=== PATIENT | male | born 1980 | race Caucasian/White ===

== ENCOUNTER 2023-06-04 19:32 | Inpatient (IN) | payer OTHER ==
[2023-06-04] MEDS ORDERED: SODIUM CHLORIDE 0.9% 1,000 ML IV ONE (19:43)
[2023-06-04] MEDS ORDERED: LIDOCAINE 1% INJ 10MG/ML (5 ML VIAL-PF) SQ ONE (19:52)
[2023-06-04] MEDS ORDERED: MIDAZOLAM 2 MG/2 ML VIAL IVP ONE (19:53)
[2023-06-04] MEDS ORDERED: VERAPAMIL SYRINGE (5 MG/10 ML) INTRAARTER ONE (19:53)
[2023-06-04] MEDS ORDERED: VERAPAMIL 2.5 MG/ML 2 ML AMP ONE (19:56)
[2023-06-04] MEDS ORDERED: fentaNYL (PF) 50 MCG/ML 2 ML AMP ONE (19:58)
[2023-06-04] MEDS ORDERED: PRASUGREL 10 MG TAB ONE (19:58)
[2023-06-04] MEDS ORDERED: fentaNYL (PF) 50 MCG/ML 2 ML AMP IVP ONE (20:01)
[2023-06-04] MEDS ORDERED: PRASUGREL 10 MG TAB PO ONE (20:06)
[2023-06-04] MEDS ORDERED: HEPARIN SODIUM 1,000 UN/ML (10ML VL) ONE (20:07)
[2023-06-04] MEDS ORDERED: IOPAMIDOL-370 100ML BTL INJ ONE ×2 (20:24→20:30)
[2023-06-04] MEDS ORDERED: ZOLPIDEM 5 MG TAB PO PRN (20:56)
[2023-06-04] MEDS ORDERED: NITROGLYCERIN SL TABS 0.4 MG TAB SUBLINGUAL PRN (20:56)
[2023-06-04] MEDS ORDERED: MAG HYDROX/AL HYDROX/SIMETH 30 ML CUP PO PRN (20:56)
[2023-06-04] MEDS ORDERED: ATROPINE SULFATE 0.1 MG/ML 10ML SYRINGE IV PRN (20:56)
[2023-06-04] MEDS ORDERED: RX INFO: IV CONTRAST WAS GIVEN 1 EACH MISC MISCELLANE PRN (20:56)
--- NOTE | 2023-06-04 20:56 | P.CRDCN ---
History of Present Illness History of present illness: HISTORY OF PRESENTING ILLNESS This is a pleasant 43-year-old with past medical history significant for tobacco abuse previously and vaping history who presents secondary to chest pain. He does not follow with a hand sizer. He states that he had been doing fairly well up until 2 weeks ago in 2 weeks ago had an episode of chest pain. It felt on the left side and then also radiated to the right side. The pain resolved 2 weeks ago however he has had reoccurrence or last 2 days. Yesterday he felt nauseous throughout the day and occasionally break out in a sweat and short of breath and chest pain off and on. Chest pain intensified tonight and therefore initially presented to [facility] and then was transferred to [facility] secondary to anterior ST elevations. EKG shows sinus rhythm with diffuse ST elevations anterior septal leads with reciprocal changes. He has not had a chest pain similar to this other than 2 weeks ago. He does vape and previously smoke tobacco however has quit tobacco. He does smoke marijuana however no illicit drugs, denies cocaine. He states he had an uncle with some form of heart disease and he believes stents however no one else in the family having significant coronary artery disease. He states his cholesterol levels were borderline elevated. REVIEW OF SYSTEMS At the time of my exam: CONSTITUTIONAL: Denies fever or chills. CARDIOVASCULAR: +chest pain, +shortness of breath, no orthopnea, PND or palpitations. RESPIRATORY: Denies cough. GASTROINTESTINAL: Denies abdominal pain, diarrhea, constipation, +nausea no vomiting. MUSCULOSKELETAL: Denies myalgias. NEUROLOGIC: Denies numbness, tingling or weakness. ENDOCRINE: Denies fatigue, weight change, polydipsia or polyurina. GENITOURINARY: Denies burning, hematuria or urgency with micturation. HEMATOLOGIC: Denies history of anemia or bleeding. PHYSICAL EXAMINATION Vital signs reviewed. CONSTITUTIONAL: No apparent distress. HEENT: Head is normocephalic. Pupils are equal, round. Sclerae anicteric. Mucous membranes of the mouth are moist. No JVD. No carotid bruit. CHEST EXAMINATION: Lungs are clear to auscultation. No chest wall tenderness is noted on palpation or with deep breathing. HEART EXAMINATION: Regular rate and rhythm. S1, S2 heard. No murmurs, gallops or rub. ABDOMEN: Soft, nontender. Positive bowel sounds. EXTREMITIES: 2+ peripheral pulses, no lower extremity edema and no calf tenderness. NEUROLOGIC EXAMINATION: Patient is awake, alert and oriented x3. ASSESSMENT 1. Anterolateral STEMI 2. Hyperlipidemia 3. Marijuana abuse 4. Previous tobacco abuse, currently vaping PLAN Patient with diffuse anterior ST elevations and discuss risks and benefits of heart catheterization and patient is agreeable. Symptoms have been going off and on over the last 2 days. Aspirin and heparin. Tobacco cessation recommended. Marijuana cessation recommended. Check 2-D echo. Further recommendations to follow Medications and Allergies Allergies Allergy/AdvReac Type Severity Reaction Status Date / Time No Known Allergies Allergy Verified 06/04/23 20:19 Physical Exam Vitals: Intake and Output 06/04/23 06/04/23 06/04/23 06:59 14:59 22:59 Intake Total 500 Balance 500 Intake: IV 500 Other: Weight 84 kg Results Intake and Output 06/04/23 06/04/23 06/04/23 06:59 14:59 22:59 Intake Total 500 Balance 500 Intake: IV 500 Other: Weight 84 kg Patient Weight 06/05/23 06:59 Weight 84 kg
--- NOTE | 2023-06-04 21:08 | P.PRCINT ---
Percutaneous Coronary Int. - Percutaneous Coronary Intervention Percutaneous Coronary Intervention: PROCEDURES PERFORMED: Left heart catheterization, bilateral coronary angiography, PCI LAD with 3.5 x 33 mm Xience WAI, post dilated with a 3.75mm NC balloon, IVUS LAD INDICATION: Anterior STEMI CONSENT:I have discussed the risks, benefits and alternative therapies for the above-mentioned procedure and for both sedation/analgesia as well as necessary blood product administration, if indicated, as they pertain to this patient. The patient has indicated understanding and acceptance of the risks and procedures discussed. PROCEDURE: After the risks, benefits and alternatives of the above mentioned procedure explained in detail with the patient, informed consent was obtained. Patient was taken to the catheterization lab and prepped and draped in usual fashion. Ultrasound guidance was used to assess for arterial access. 1% lidocaine was used to anesthetize the right radial artery. A 6-Cymro sheath was placed in the right radial artery using modified Seldinger technique and ultrasound guidance. The decision was made to perform PCI of the LAD. A 6-Cymro CLS 3.5 guide was used to engage the left main. A 0.014 BMW wire was advanced in the distal LAD. Predilation was performed with a 3.0 x 12 mm balloon. Next intravascular ultrasound showed an ulcerated lesion of the mid LAD just prior to diagonal branch and more diffuse atherosclerotic disease of the mid LAD. An additional 0.014 BMW wire was advanced diagonal branch. A 3.5 x 33 mm Xience WAI was placed in the mid LAD overlapping a moderate caliber diagonal 1 branch. The stent was postdilated with a 3.75 noncompliant balloon. Repeat intravascular ultrasound showed excellent stent apposition. Final angiograms were performed with a wire however some difficulty with the guide deep-seated in the left main and therefore further angiograms were deferred. Right coronary angiography was performed with a 5-Cymro AR2 catheter in various views. A 5-Cymro FR5 catheter was inserted into the left ventricle and pressure measurements were obtained. The right radial sheath was removed and a TR band was placed with hemostasis achieved. The patient tolerated the procedure well. Patient was transported back to the post catheterization holding area in stable condition. Conscious Sedation: Patient was monitored under the direct supervision of myself for conscious sedation using Versed and fentanyl for a total duration of 49 minutes HEMODYNAMICS: Aorta: 145/76 LV: 122/8, LVEDP 16 SELECTIVE CORONARY ARTERIOGRAPHY: LEFT MAIN: The left main is a large caliber vessel which bifurcates into the LAD and circumflex. There is no significant stenosis. LEFT ANTERIOR DESCENDING CORONARY ARTERY: LAD is a large caliber vessel which wraps around to the apex. There is mild 30-40% mid LAD stenosis with a more focal ulcerated plaque just prior to a moderate caliber diagonal 1 branch. Just after the diagonal branch there is 100% mid LAD stenosis. LEFT CIRCUMFLEX CORONARY ARTERY: Left circumflex is a moderate to large caliber vessel which gives off the PDA and is dominant. There is mild 20-30% proximal circumflex stenosis and otherwise mild luminal irregularities. RIGHT CORONARY ARTERY: The right coronary artery is a small to moderate caliber vessel which gives off an acute marginal branch and has a proximal 90% stenosis. FINAL IMPRESSION: 1. CAD as described above including 100% mid LAD stenosis, 30-40% mid LAD, 90% nondominant RCA stenoses 2. S/p PCI LAD with 3.5 x 33 mm Xience WAI, post dilated with a 3.75mm NC balloon 3. High normal left sided filling pressures PLAN: 1. Aggressive risk factor modification per most recent ACC/AHA guidelines. 2. Continue dual antiplatelets with aspirin and Effient for 12 months 3. Treat RCA medically given nondominant only leading to an acute marginal branch 4. Tobacco cessation/ vaping cessation was discussed and recommended to patient.
[2023-06-04 21:09] LABS: Glucose,Whole Blood 126 mg/dL (70-110)
[2023-06-04] MEDS: ATORVASTATIN 80 MG TAB PO SCH (22:12)
[2023-06-04] MEDS: METOPROLOL SUCCINATE (ER) 25 MG TAB.ER.24H PO SCH (22:12)
[2023-06-04] MEDS: SODIUM CHLORIDE 0.9% 1,000 ML in EMPTY BAG 1 BAG IV SCH (22:13)
[2023-06-04 23:43] LABS: Glucose,Whole Blood 91 mg/dL (70-110)
[2023-06-05] MEDS ORDERED: ONDANSETRON 4 MG/2 ML VIAL IVP PRN (00:05)
[2023-06-05 02:58] LABS: Chol/HDL Ratio 5.25 Ratio; LDL Cholesterol,Calculated 137.8 mg/dL (0.0-131.0)
--- NOTE | 2023-06-05 03:37 | HP ---
HISTORY AND PHYSICAL HISTORY OF PRESENT ILLNESS: The patient was transferred over from [facility] to [facility] for STEMI. He might need some stents put in his heart today, he is postop in the ICU. MEDICATIONS: 1. Aspirin 81 daily. 2. Lipitor 80 daily. 3. Toprol-XL 12.5 mg daily. 4. Nitrostat 0.4 sublingual daily. 5. Zofran p.r.n. daily. 6. Ambien 5 mg daily. 7. Effient 10 mg daily. PHYSICAL EXAMINATION: CARDIOVASCULAR: S1, S2. LUNGS: Scattered rhonchi and wheeze. HEMATOLOGY: Negative for Homans. PSYCH: Fair mood and affect. post stent placement with typical indications, beta blockers, blood thinners, aspirin, cholesterol pills. Await for cardiology to clear for discharge. MAGALIL / ARLEYN: [id number] /
--- NOTE | 2023-06-05 07:29 | P.PN ---
Subjective Progress Note Date: 06/05/23 PROGRESS NOTE The patient is a 43-year-old male with a history of tobacco use and no prior cardiac history who presented with an acute anterior wall myocardial infarction, underwent stenting of the LAD by Dr. Haley. He has no chest discomfort this morning, he had a sinus arrest episode yesterday that could be vagal reaction. Since that time he had no further bradycardia or pauses. He is in sinus mechanism. He denies any dyspnea, dizziness or palpitations. He had no prior history of cardiac disease and takes no medication at home. Medications: Aspirin, Lipitor 80 mg daily, metoprolol succinate 12.5 mg daily, Effient 10 mg daily PHYSICAL EXAMINATION: Blood pressure 113/80 heart rate 60 LUNGS: Clear to auscultation HEART: Regular rate and rhythm, S1, S2. No S3. No systolic murmur ABDOMEN: Soft, nontender, no organomegaly EXTREMETIES: No edema, right radial pulse intact LAB: LDL 138, EKG sinus mechanism with persistent ST segment elevation in the anterior leads IMPRESSION: 1. Status post anterior wall myocardial infarction and stenting of the LAD 2. History of tobacco use 3. One episode of sinus pauses without any recurrence, could be related to vagal reaction 4. Hyperlipidemia PLAN: 1. Obtain an echocardiogram with Doppler 2. Increase physical activity 3. Follow rhythm 4. If stable probable transfer to telemetry this p.m. 5. Depending on his progress further recommendations will be made Objective - Vital Signs Vital signs: Vital Signs Temp 98 F 06/05/23 04:00 Pulse 61 06/05/23 07:00 Resp 12 06/05/23 07:00 BP 113/80 06/05/23 07:00 Pulse Ox 96 06/05/23 07:00 FiO2 Intake & Output 06/04/23 06/05/23 06/05/23 18:59 06:59 18:59 Intake Total 1508 Output Total 1000 Balance 508 Weight 93.1 kg Intake: IV 500 Intake, IV Titration 1008 Amount Sodium Chloride 0.9% 1, 1008 000 ml In Empty Bag 1 bag @ 1 ML/KG/HR 84 mls/hr IV .[id number] ASHLY Rx#: [id number] Output: Urine 1000 Other: # Voids 1 - Labs Labs: Abnormal Lab Results - Last 24 Hours (Table) 10/17/23 10/17/23 Range/Units 21:07 22:45 POC Glucose (mg/dL) 126 H (70-110) mg/dL Triglycerides 153.00 H (0.00-149.00) mg/dL Cholesterol 208.00 H (0.00-200.00) mg/dL LDL Cholesterol, Calc 137.8 H (0.0-131.0) mg/dL HDL Cholesterol 39.60 L (40.00-60.00) mg/dL
[2023-06-05] MEDS: ASPIRIN 81 MG PO SCH (08:17)
[2023-06-05] MEDS: PRASUGREL 10 MG TAB PO SCH (08:17)
[2023-06-05] MEDS: METOPROLOL SUCCINATE (ER) 25 MG TAB.ER.24H PO SCH (08:17)
[2023-06-05 09:48] LABS: HCT 44.8 % (39.0-53.0); HGB 15.4 gm/dL (13.0-17.5); MCHC 34.4 g/dL (31.0-37.0); MCV 84.3 fL (80.0-100.0); Mean Platelet Volume 7.9; Platelet Count 161 k/uL (150-450); RBC 5.32 m/uL (4.30-5.90); RDW 12.8 % (11.5-15.5); WBC 9.6 k/uL (3.8-10.6)
[2023-06-05 10:08] LABS: African American GFR (CKD) >90 (>60 ml/min/1.73 sqM); Anion Gap 9 mmol/L; Blood Urea Nitrogen 7 mg/dL (9-20); Calcium 9.1 mg/dL (8.4-10.2); Carbon Dioxide 19 mmol/L (22-30); Chloride 111 mmol/L (98-107); Glucose 153 mg/dL (74-99); Magnesium 1.8 mg/dL (1.6-2.3); Non-African American GFR(CKD) >90 (>60 ml/min/1.73 sqM); Phosphorus 2.6 mg/dL (2.5-4.5); Potassium 3.8 mmol/L (3.5-5.1); Sodium 139 mmol/L (137-145)
[2023-06-05 10:28] VITALS: BMI 29.4
[2023-06-05] MEDS: SODIUM CHLORIDE 0.9% 1,000 ML in EMPTY BAG 1 BAG IV SCH (11:22)
--- NOTE | 2023-06-05 11:35 | CA ---
Transthoracic Echo Report Name: Jerome Angeles Age: 43 Gender: M : 1980 Exam Date: 06/05/2023 07:53 Exam Location: [place] [facility] Ht (in): 70 Wt (lb): 185 Ordering Physician: Leo Haley DO ([email or web address]) Attending/Referring Phys: Forensic Nurse Ami Trinidad RDCS Procedure CPT: Indications: re: STEMI Cardiac Hx: stent Technical Quality: Poor Contrast 1: Lumason Total Dose (mL): 1 Contrast 2: Total Dose (mL): MEASUREMENTS (Male / Female) Normal Values 2D ECHO LV Diastolic Diameter PLAX 5.0 cm 4.2 - 5.9 / 3.9 - 5.3 cm LV Systolic Diameter PLAX 3.2 cm IVS Diastolic Thickness 1.0 cm 0.6 - 1.0 / 0.6 - 0.9 cm LVPW Diastolic Thickness 1.0 cm 0.6 - 1.0 / 0.6 - 0.9 cm LV Relative Wall Thickness 0.4 RV Internal Dim ED PLAX 3.0 cm LA Systolic Diameter LX 3.5 cm 3.0 - 4.0 / 2.7 - 3.8 cm LV Diastolic Volume MOD 4C 33.7 cm??? LV Systolic Volume MOD 4C 11.2 cm??? LV Ejection Fraction MOD 4C 66.8 % LV Cardiac Index MOD 4C 593.2 cm???/min???m??? LV Diastolic Length 4C 7.5 cm LV Systolic Length 4C 6.4 cm LV Diastolic Volume MOD 2C 147.8 cm??? LV Systolic Volume MOD 2C 58.7 cm??? LV Ejection Fraction MOD 2C 60.3 % LV Cardiac Index MOD 2C 2347.7 cm???/min???m??? LV Diastolic Length 2C 9.3 cm LV Systolic Length 2C 8.2 cm LA Volume 46.9 cm??? 18 - 58 / 22 - 52 cm??? LA Volume Index 22.9 cm???/m??? 16 - 28 cm???/m??? M-MODE Aortic Root Diameter MM 3.3 cm MV E Point Septal Separation 0.3 cm AV Cusp Separation MM 2.4 cm DOPPLER MV Area PHT 2.7 cm??? Mitral E Point Velocity 87.4 cm/s Mitral A Point Velocity 64.8 cm/s Mitral E to A Ratio 1.3 MV Deceleration Time 276.6 ms MV E' Velocity 7.4 cm/s Mitral E to MV E' Ratio 11.7 TR Peak Velocity 250.9 cm/s TR Peak Gradient 25.2 mmHg Right Ventricular Systolic Press 30.2 mmHg FINDINGS Left Ventricle Left ventricular ejection fraction is estimated at 45-50 %. Left ventricular cavity size normal. Left ventricular wall thickness normal. Apical septum hypokinesis Right Ventricle Normal right ventricular size. Right ventricular systolic pressure within normal limits. . Right Atrium Normal right atrial size. Left Atrium Normal left atrial size. Mitral Valve Structurally normal mitral valve. Trace mitral regurgitation. Aortic Valve Trileaflet aortic valve. No aortic valve stenosis or regurgitation. Tricuspid Valve Structurally normal tricuspid valve. Mild tricuspid regurgitation. Pulmonic Valve Structurally normal pulmonic valve. Trace pulmonic regurgitation. Pericardium No pericardial effusion. Aorta Normal size aortic root and proximal ascending aorta. CONCLUSIONS Reduced LV systolic function with anterior apical and anteroseptal hypokinesis Previewed by: Dr. Manolo Betancur MD (Electronically Signed) Final Date: 05 June 2023 11:34
[2023-06-05 16:37] VITALS: TEMP 98.1
[2023-06-05] MEDS: ATORVASTATIN 80 MG TAB PO SCH (20:05)
[2023-06-06 05:41] LABS: B/A1 Ratio 1.08 Ratio (0.35 - 1.00)
[2023-06-06 06:14] LABS: African American GFR (CKD) >90 (>60 ml/min/1.73 sqM); Anion Gap 11 mmol/L; Blood Urea Nitrogen 7 mg/dL (9-20); Calcium 9.3 mg/dL (8.4-10.2); Carbon Dioxide 19 mmol/L (22-30); Chloride 111 mmol/L (98-107); Glucose 98 mg/dL (74-99); Non-African American GFR(CKD) >90 (>60 ml/min/1.73 sqM); Potassium 3.9 mmol/L (3.5-5.1); Sodium 141 mmol/L (137-145)
--- NOTE | 2023-06-06 07:22 | P.PN ---
Subjective Progress Note Date: 06/06/23 PROGRESS NOTE The patient is a 43-year-old male with a history of tobacco use and no prior cardiac history who presented with an acute anterior wall myocardial infarction, underwent stenting of the LAD by Dr. Haley. He has no chest discomfort this morning, he had a sinus arrest episode yesterday that could be vagal reaction. Since that time he had no further bradycardia or pauses. He is in sinus m echanism. He denies any dyspnea, dizziness or palpitations. He had no prior history of cardiac disease and takes no medication at home. June 06: The patient is feeling well this morning, he denies any chest discomfort, dizziness or palpitations. He has been ambulating without difficulty. He c ontinues to be in sinus mechanism. There is no evidence of ventricular ectopic activity. He had an echocardiogram that showed an ejection fraction of 45-50% with mild tricuspid regurgitation and trace mitral regurgitation. Medications: Aspirin, Lipitor 80 mg daily, metoprolol succinate 12.5 mg daily, Effient 10 mg daily PHYSICAL EXAMINATION: Blood pressure 110/60 heart rate 60 LUNGS: Clear to auscultation HEART: Regular rate and rhythm, S1, S2. No S3. No systolic murmur ABDOMEN: Soft, nontender, no organomegaly EXTREMETIES: No edema, LAB: LDL 138, EKG sinus mechanism with persistent ST segment elevation in the anterior leads IMPRESSION: 1. Status post anterior wall myocardial infarction and stenting of the LAD 2. History of tobacco use 3. Mild ischemic cardiomyopathy 4. Hyperlipidemia PLAN: 1. Add JOSÉ MIGUEL inhibitor 2. Increase physical activity 3. If stable probable discharge home today and follow-up as an outpatient with Dr. Haley next week Objective - Vital Signs Vital signs: Vital Signs Temp 98.1 F 06/05/23 16:00 Pulse 56 L 06/06/23 04:00 Resp 16 06/06/23 04:00 BP 110/67 06/06/23 04:00 Pulse Ox 94 L 06/06/23 04:00 FiO2 Intake & Output 06/05/23 06/06/23 06/06/23 18:59 06:59 18:59 Intake Total 502 Output Total 1500 Balance -998 Weight 93.1 kg 84.5 kg Intake: Intake, IV Titration 252 Amount Sodium Chloride 0.9% 1, 252 000 ml In Empty Bag 1 bag @ 1 ML/KG/HR 84 mls/hr IV .[id number] ASHLY Rx#: [id number] Oral 250 Output: Urine 1500 Other: # Voids 3 - Labs CBC & Chem 7: 06/05/23 09:33 06/06/23 04:08 Labs: Abnormal Lab Results - Last 24 Hours (Table) 06/04/23 06/05/23 06/06/23 Range/Units 22:45 09:33 04:08 Chloride 111 H 111 H (98-107) mmol/L Carbon Dioxide 19 L 19 L (22-30) mmol/L BUN 7 L 7 L (9-20) mg/dL Glucose 153 H (74-99) mg/dL Apolipoprot B/A1 Ratio 1.08 H (0.35 - 1.00) Ratio
[2023-06-06] MEDS: PRASUGREL 10 MG TAB PO SCH (08:29)
[2023-06-06] MEDS: METOPROLOL SUCCINATE (ER) 25 MG TAB.ER.24H PO SCH (08:29)
[2023-06-06] MEDS: ASPIRIN 81 MG PO SCH (08:29)
[2023-06-06 12:41] VITALS: BP 124/83; PULSE 72; RESP 17
== END 2023-06-06 15:59 | disposition home or self-care (01) | DRG 174 ==
LOC: 2SICU 19:37
PROVIDERS: ADMIT Family Medicine; ATTEND Family Medicine
PROC: B2151ZZ Fluoroscopy of Left Heart using Low Osmolar Contrast (ICD-10-PCS; 2023-06-04)
PROC: B241ZZ3 Ultrasonography of Multiple Coronary Arteries, Intravascular (ICD-10-PCS; 2023-06-04)
PROC: 027034Z Dilation of Coronary Artery, One Artery with Drug-eluting Intraluminal Device, Percutaneous Approach (ICD-10-PCS; principal; 2023-06-04 19:38)
PROC: 4A023N7 Measurement of Cardiac Sampling and Pressure, Left Heart, Percutaneous Approach (ICD-10-PCS; 2023-06-04 19:38)
PROC: B2111ZZ Fluoroscopy of Multiple Coronary Arteries using Low Osmolar Contrast (ICD-10-PCS; 2023-06-04 19:38)
DX: I21.09 ST elevation (STEMI) myocardial infarction involving other coronary artery of anterior wall (principal); E78.5 Hyperlipidemia, unspecified; F12.10 Cannabis abuse, uncomplicated; I25.5 Ischemic cardiomyopathy; Z82.49 Family history of ischemic heart disease and other diseases of the circulatory system; Z87.891 Personal history of nicotine dependence; Z71.6 Tobacco abuse counseling
CPT/HCPCS: 80048; 80061; 82172; 83695; 83735; 84100; 85027; 92978; 93306; 93458

== ENCOUNTER → 2023-10-28 | Outpatient (CLI) | payer OTHER ==
--- NOTE | 2023-10-28 11:41 | CA ---
Stress Echo Report Jerome Angeles Age: 43 Gender: M : 1980 Exam Date: 10/28/2023 09:39 Exam Location: [place] [facility] Ht (in): 70 Wt (lb): 195 Ordering Physician: Leo Haley DO ([email or web address]) Referring Physician: GOLDEN,, [employer] Repairer: Martina Burks RDCS Technologist Procedure CPT: Indication: I25.10 ATHSCL HEART DISEASE OF [place] ICD-9 Codes: Rhythm: Patient History: Atypical angina Cardiac Medications: Medications in past 24 hours: Contrast: Stress Results Protocol: Trey Total dose(mL): Exercise Duration (min:sec): 8:[address] Depression (mm): Angina Score: Woodard Score: METS: 9.5 Resting HR: 75 Resting BP: 130 / 84 Peak HR: 171 Peak BP: 217 / 99 Max Predicted HR: 176 97 % Max Predicted HR Target HR: 150 Double Product: [id number] Stress Summary: The patient's target heart rate was achieved BP Response: Normal Reason for Termination: Reached target heart rate or work-load Cardiac Symptoms: Test terminated after reaching target heart rate (85% max predicted) ECG Analysis Resting ECG: Stress ECG: Arrhythmia: Echo Analysis Resting Echo: Peak Echo Analysis: MEASUREMENTS (Male/Female) Normal Values CONCLUSIONS Excellent exercise tolerance The patient exercised for 8 minutes on the Trey protocol Good augmentation in the blood pressure and heart rate in response to exercise Normal electrocardiogram and echocardiogram in response to exercise Dr. Wei Bauer MD (Electronically Signed) Final Date: 28 October 2023 11:40
== END | disposition home or self-care (01) ==
LOC: RADNMMAIN 10-15 09:40
PROVIDERS: ATTEND Internal Medicine
DX: I25.10 Atherosclerotic heart disease of native coronary artery without angina pectoris (principal); R07.9 Chest pain, unspecified
CPT/HCPCS: 93351

== ENCOUNTER 2023-11-22 19:10 | Emergency (ER) | payer OTHER ==
--- NOTE | 2023-11-22 19:59 | ED ---
General Adult HPI - General Chief complaint: Chest Pain Stated complaint: Chest Pains Time Seen by Provider: 11/22/23 19:29 Source: patient, RN notes reviewed, old records reviewed Mode of arrival: ambulatory Limitations: no limitations - History of Present Illness Initial comments: Is a 43-year-old male with past medical history with recent LAD stenting in May 2023 who presents emergency department complaining of an episode of chest pain. It occurred earlier today. States it radiated from the left side of his chest towards his left shoulder. Happened approximate hour prior to arrival. Currently has no symptoms. They all self resolved. Had a little bit of nausea with it as well. No shortness of breath. No abdominal pain. No vomiting. No headaches or blurry vision. States he felt a discomfort behind his eyes as well but denies any neck pain to me. Presents for further evaluation at this time. States he recently had a stress test in October 2023 and it was within acceptable limits. - Related Data Previous Rx's Medication Instructions Recorded Aspirin 81 mg PO DAILY 90 Days #90 tab 06/06/23 Atorvastatin [Lipitor] 80 mg PO HS 90 Days #90 tab 06/06/23 Metoprolol Succinate (ER) [Toprol 12.5 mg PO DAILY 90 Days #90 tab 06/06/23 XL] Nitroglycerin Sl Tabs [Nitrostat] 0.4 mg SUBLINGUAL Q5M PRN 180 Days 06/06/23 #100 tab Prasugrel [Effient] 10 mg PO DAILY 30 Days #30 tab 06/06/23 lisinopriL [Zestril] 2.5 mg PO DAILY 90 Days #90 tab 06/06/23 Allergies Allergy/AdvReac Type Severity Reaction Status Date / Time No Known Allergies Allergy Verified 11/22/23 19:19 Review of Systems ROS Statement: Those systems with pertinent positive or pertinent negative responses have been documented in the HPI. Review of Systems: CONST: Denies fever EYES: Denies blurry vision ENT: Denies nasal congestion C/V: Denies Chest pain RESP: Denies shortness of breath GI: Denies abdominal pain : Denies dysuria SKIN: Denies rash. MSK: Denies joint pain. NEURO: Denies headache ROS Other: All systems not noted in ROS Statement are negative. Past Medical History Past Medical History: No Reported History, Hypertension, Myocardial Infarction ([place]) Additional Past Medical History / Comment(s): Bilateral Rotator cuff damage, cevical vertabe damage History of Any Multi-Drug Resistant Organisms: None Reported Past Surgical History: No Surgical Hx Reported, Heart Catheterization With Stent Past Anesthesia/Blood Transfusion Reactions: No Reported Reaction Past Psychological History: No Psychological Hx Reported Smoking Status: Former smoker, Vaper Past Alcohol Use History: None Reported Past Drug Use History: Marijuana - Past Family History Father Family Medical History: Cancer Mother Family Medical History: Cancer General Exam - General Exam Comments Initial Comments: General: Appears in no acute distress. HEAD: Normal with no signs of head trauma. EYES: PERRLA, EOMI, conjunctiva normal, no discharge. ENT: Hearing grossly intact, normal oropharynx. RESPIRATORY: Clear breath sounds bilaterally. No wheezes, rales, or rhonchi. C/V: Regular rate and rhythm. S1 and S2 auscultated, no edema, peripheral pulses 2+ and intact throughout ABD: Abd is soft, nontender, nondistended EXT: Normal range of motion, no obvious deformity SKIN: No rashes or lesions observed on exposed skin. NEURO: Alert and oriented x 4. Limitations: no limitations Course Vital Signs 11/22/23 11/22/23 19:15 20:03 Temperature 98.2 F Pulse Rate 76 64 Respiratory 18 18 Rate Blood Pressure 139/91 104/59 O2 Sat by Pulse 97 96 Oximetry Medical Decision Making - Medical Decision Making Was pt. sent in by a medical professional or institution (, PA, BLOOD BANK MANAGER, urgent care, hospital, or jail...) When possible be specific @ -No Did you speak to anyone other than the patient for history (EMS, parent, family, police, friend...)? What history was obtained from this source @ -No Did you review nursing and triage notes (agree or disagree)? Why? @ -I reviewed and agree with nursing and triage notes Were old charts reviewed (outside hosp., previous admission, EMS record, old EKG, old radiological studies, urgent care reports/EKG's, jail records)? Report findings @ -Old charts reviewed Differential Diagnosis (chest pain, altered mental status, abdominal pain women, abdominal pain men, vaginal bleeding, weakness, fever, dyspnea, syncope, headache, dizziness, GI bleed, back pain, seizure, CVA, palpatations, mental health, musculoskeletal)? @ -Differential Chest Pain: Stable Angina, Unstable Angina, STEMI, NSTEMI Aortic Dissection, Pneumothorax, Musculoskeletal, Esophageal Spasm GERD, Cholecystitis, Pancreatitis, Zoster, this is not meant to be an all-inclusive list. EKG interpreted by me (3pts min.). @ -As above X-rays interpreted by me (1pt min.). @ -Chest x-ray shows no obvious acute cardiopulmonary process. CT interpreted by me (1pt min.). @ -None done U/S interpreted by me (1pt. min.). @ -None done What testing was considered but not performed or refused? (CT, X-rays, U/S, labs)? Why? @ -None What meds were considered but not given or refused? Why? @ -None Did you discuss the management of the patient with other professionals (professionals i.e. , PA, BLOOD BANK MANAGER, lab, RT, psych nurse, social media strategist, optical instrument repairer, teacher, chief procurement officer, watch case polisher)? Give summary @ -No Was smoking cessation discussed for >3mins.? @ -No Was critical care preformed (if so, how long)? @ -No Were there social determinants of health that impacted care today? How? (Homelessness, low income, unemployed, alcoholism, drug addiction, transportation, low edu. Level, literacy, decrease access to med. care, fpc, rehab)? @ -No Was there de-escalation of care discussed even if they declined (Discuss DNR or withdrawal of care, Hospice)? DNR status @ -No What co-morbidities impacted this encounter? (DM, HTN, Smoking, COPD, CAD, Cancer, CVA, ARF, Chemo, Hep., AIDS, mental health diagnosis, sleep apnea, morbid obesity)? @ -None Was patient admitted / discharged? Hospital course, mention meds given and route, prescriptions, significant lab abnormalities, going to OR and other pertinent info. @ -Based on the patient's presentation and physical exam, patient presents emergency department complaining of chest pain. Has a history of cardiac st enting. Currently has no pain. Symptoms occurred approximately an hour ago. Vital signs are within acceptable limits. We will obtain cardiac workup. He was in agreement this plan. He will be given 324 mg of aspirin as well as a fluid bolus. EKG showed no signs of acute ischemia.Chest x-ray shows no acute cardiopulmonary process. Repeat EKG shows no dynamic changes. Patient's laboratory studies are remarkable for slightly elevated lipase, as well as a undetectable troponin. On reevaluation, patient remains asymptomatic. Patient's heart score is moderate at 4. I strongly recommended observation admission at this time. Patient was initially amenable to it however decided he wanted to go home. He was going to leave AGAINST MEDICAL ADVICE. The patient was apprised of the potential risks of leaving the hospital AGAINST MEDICAL ADVICE, including serious complications, permanent disability, and . At the time of my interview the patient, the patient was alert, oriented, and capable. Patient signed AMA form, which was witnessed and signed by nursing staff, and placed in patient's chart. I urged the patient to return to the hospital as soon as possible to complete evaluation and treatment. Undiagnosed new problem with uncertain prognosis? @ -No Drug Therapy requiring intensive monitoring for toxicity (Heparin, Nitro, Insulin, Cardizem)? @ -No Were any procedures done? @ -No Diagnosis/symptom? @ -Chest pain, left AGAINST MEDICAL ADVICE, mild pancreatitis Acute, or Chronic, or Acute on Chronic? @ -Acute Uncomplicated (without systemic symptoms) or Complicated (systemic symptoms)? @ -Complicated Side effects of treatment? @ -None Exacerbation, Progression, or Severe Exacerbation] @ -No Poses a threat to life or bodily function? @ -Yes - Lab Data Result diagrams: 11/22/23 19:51 11/22/23 19:51 Lab Results 11/22/23 11/22/23 11/22/23 Range/Units 19:51 19:51 19:51 WBC 7.1 (3.8-10.6) k/uL RBC 5.46 (4.30-5.90) m/uL Hgb 15.6 (13.0-17.5) gm/dL Hct 46.2 (39.0-53.0) % MCV 84.7 (80.0-100.0) fL MCH 28.6 (25.0-35.0) pg MCHC 33.8 (31.0-37.0) g/dL RDW 13.1 (11.5-15.5) % Plt Count 175 (150-450) k/uL MPV 7.9 Neutrophils % 72 % Lymphocytes % 17 % Monocytes % 5 % Eosinophils % 4 % Basophils % 1 % Neutrophils # 5.1 (1.3-7.7) k/uL Lymphocytes # 1.2 (1.0-4.8) k/uL Monocytes # 0.3 (0-1.0) k/uL Eosinophils # 0.3 (0-0.7) k/uL Basophils # 0.1 (0-0.2) k/uL PT 10.7 (10.0-12.5) sec INR 1.0 (<1.2) APTT 26.8 (22.0-30.0) sec Sodium 139 (137-145) mmol/L Potassium 4.3 (3.5-5.1) mmol/L Chloride 109 H (98-107) mmol/L Carbon Dioxide 23 (22-30) mmol/L Anion Gap 7 mmol/L BUN 14 (9-20) mg/dL Creatinine 1.03 (0.66-1.25) mg/dL Est GFR (CKD-EPI)AfAm >90 (>60 ml/min/1.73 sqM) Est GFR (CKD-EPI)NonAf 88 (>60 ml/min/1.73 sqM) Glucose 125 H (74-99) mg/dL Calcium 9.1 (8.4-10.2) mg/dL Magnesium 2.0 (1.6-2.3) mg/dL Total Bilirubin 0.4 (0.2-1.3) mg/dL AST 33 (17-59) U/L ALT 36 (4-49) U/L Alkaline Phosphatase 88 (38-126) U/L Troponin I (0.000-0.034) ng/mL Total Protein 6.6 (6.3-8.2) g/dL Albumin 4.3 (3.5-5.0) g/dL Lipase 400 H (23-300) U/L 11/22/23 Range/Units 19:51 WBC (3.8-10.6) k/uL RBC (4.30-5.90) m/uL Hgb (13.0-17.5) gm/dL Hct (39.0-53.0) % MCV (80.0-100.0) fL MCH (25.0-35.0) pg MCHC (31.0-37.0) g/dL RDW (11.5-15.5) % Plt Count (150-450) k/uL MPV Neutrophils % % Lymphocytes % % Monocytes % % Eosinophils % % Basophils % % Neutrophils # (1.3-7.7) k/uL Lymphocytes # (1.0-4.8) k/uL Monocytes # (0-1.0) k/uL Eosinophils # (0-0.7) k/uL Basophils # (0-0.2) k/uL PT (10.0-12.5) sec INR (<1.2) APTT (22.0-30.0) sec Sodium (137-145) mmol/L Potassium (3.5-5.1) mmol/L Chloride (98-107) mmol/L Carbon Dioxide (22-30) mmol/L Anion Gap mmol/L BUN (9-20) mg/dL Creatinine (0.66-1.25) mg/dL Est GFR (CKD-EPI)AfAm (>60 ml/min/1.73 sqM) Est GFR (CKD-EPI)NonAf (>60 ml/min/1.73 sqM) Glucose (74-99) mg/dL Calcium (8.4-10.2) mg/dL Magnesium (1.6-2.3) mg/dL Total Bilirubin (0.2-1.3) mg/dL AST (17-59) U/L ALT (4-49) U/L Alkaline Phosphatase (38-126) U/L Troponin I <0.012 (0.000-0.034) ng/mL Total Protein (6.3-8.2) g/dL Albumin (3.5-5.0) g/dL Lipase (23-300) U/L - EKG Data -: EKG Interpreted by Me EKG Comments: 12-lead Electrocardiogram Interpretation Note EKG was reviewed and interpreted by myself. 12-lead ECG performed at 1924 is interpreted by me as revealing normal sinus rhythm at a rate of 60 beats per minute. Marion is normal. OR interval is 150 ms, QRS duration is 92 ms, QTc is 370 ms.. There were no obvious acute ST or T wave abnormalities to suggest myocardial ischemia or injury. Nonspecific ST segment changes. R wave progression across the precordium was delayed.. 12-lead Electrocardiogram Interpretation Note EKG was reviewed and interpreted by myself. 12-lead ECG performed at 2011 is interpreted by me as revealing sinus bradycardia at a rate of 51 beats per minute. Marion is normal. OR interval is 157 ms, QRS duration is 91 ms, QTc is 369 ms.. There were no obvious acute ST or T wave abnormalities to suggest myocardial ischemia or injury. R wave progression across the precordium was delayed. By my interpretation this EKG is non-diagnostic for acute ischemia. No dynamic changes when compared with prior EKG from today. Disposition Clinical Impression: Chest pain, Left against medical advice, Pancreatitis Disposition: LEFT AGAINST MEDICAL ADVICE Instructions (If sedation given, give patient instructions): Chest Pain (ED) Referrals: None,Stated [Primary Care Provider] - 1-2 days Wei Bauer MD [STAFF PHYSICIAN] - 1-2 days Time of Disposition: 20:55
[2023-11-22] MEDS: SODIUM CHLORIDE 0.9% 1,000 ML IV STA (20:01)
[2023-11-22] MEDS: ASPIRIN 81 MG PO STA (20:03)
[2023-11-22 20:21] LABS: Basophils # (A) 0.1 k/uL (0-0.2); Basophils % (A) 1 %; Eosinophils # (A) 0.3 k/uL (0-0.7); Eosinophils % (A) 4 %; HCT 46.2 % (39.0-53.0); HGB 15.6 gm/dL (13.0-17.5); Lymphocytes # (A) 1.2 k/uL (1.0-4.8); Lymphocytes % (A) 17 %; MCH 28.6 pg (25.0-35.0); MCHC 33.8 g/dL (31.0-37.0); MCV 84.7 fL (80.0-100.0); Mean Platelet Volume 7.9; Monocytes # (A) 0.3 k/uL (0-1.0); Monocytes % (A) 5 %; Neutrophils # (A) 5.1 k/uL (1.3-7.7); Neutrophils % (A) 72 %; Platelet Count 175 k/uL (150-450); RBC 5.46 m/uL (4.30-5.90); RDW 13.1 % (11.5-15.5); WBC 7.1 k/uL (3.8-10.6)
[2023-11-22 20:25] VITALS: RESP 18; TEMP 98.2
[2023-11-22 20:26] LABS: Partial Thromboplastin Time 26.8 sec (22.0-30.0); Prothrombin Time 10.7 sec (10.0-12.5)
[2023-11-22 20:39] LABS: ALT 36 U/L (4-49); AST 33 U/L (17-59); African American GFR (CKD) >90 (>60 ml/min/1.73 sqM); Albumin 4.3 g/dL (3.5-5.0); Alkaline Phosphatase 88 U/L (38-126); Anion Gap 7 mmol/L; Blood Urea Nitrogen 14 mg/dL (9-20); Calcium 9.1 mg/dL (8.4-10.2); Carbon Dioxide 23 mmol/L (22-30); Chloride 109 mmol/L (98-107); Glucose 125 mg/dL (74-99); Lipase 400 U/L (23-300); Non-African American GFR(CKD) 88 (>60 ml/min/1.73 sqM); Potassium 4.3 mmol/L (3.5-5.1); Sodium 139 mmol/L (137-145); Total Bilirubin 0.4 mg/dL (0.2-1.3); Total Protein 6.6 g/dL (6.3-8.2)
[2023-11-22 21:40] VITALS: BP 125/69; PULSE 67
--- NOTE | 2023-11-22 21:51 | XR ---
EXAMINATION TYPE: XR chest 2V DATE OF EXAM: 11/22/2023 8:49 PM CLINICAL INDICATION:Male, 43 years old with history of Chest Pain; [facility] COMPARISON: None TECHNIQUE: XR chest 2V. Frontal and lateral views of the chest.. FINDINGS: Lines/Tubes/Devices: EKG leads overlie the chest. No indwelling lines are seen. Heart/mediastinum: Heart size upper normal. Mediastinum appears normal. Pulmonary vascularity: Mild perihilar opacities and mildly prominent interstitial markings may sugges t mild congestion. Lungs/Pleura: There is no evidence of pleural effusion, focal consolidation, or pneumothorax. Musculoskeletal: No acute osseous abnormality demonstrated in the limits of the exam. Other findings: None. IMPRESSION: Borderline mild cardiomegaly. Mild pulmonary vascular congestion.
== END 2023-11-22 21:02 | disposition left against medical advice (07) ==
LOC: EC 19:10
DX: K85.90 Acute pancreatitis without necrosis or infection, unspecified (principal); R00.1 Bradycardia, unspecified; R07.89 Other chest pain; F17.290 Nicotine dependence, other tobacco product, uncomplicated; F12.90 Cannabis use, unspecified, uncomplicated; Z53.29 Procedure and treatment not carried out because of patient's decision for other reasons
CPT/HCPCS: 36415; 71046; 80053; 83690; 83735; 84484; 85025; 85610; 85730; 93005; 96360; 99285

== ENCOUNTER 2024-08-28 17:10 | Emergency (ER) | payer OTHER ==
[2024-08-28 17:23] VITALS: RESP 18; TEMP 98.6
--- NOTE | 2024-08-28 17:24 | ED ---
Chest Pain HPI - General Stated Complaint: Chest pain Time Seen by Provider: 08/28/24 17:18 Source: patient, RN notes reviewed Mode of arrival: ambulatory Limitations: no limitations - History of Present Illness Initial Comments: This is a 44-year-old male with history of cardiac stent presenting with upper chest pain x 2 days. Patient describes pain as pressure/tingling/burning and constant which started while he was vaping. States pain radiates to neck with narrowing of vision noted. Patient states it feels like his blood pressure is rising. Endorses taking at least 4 low-dose aspirin earlier today. Denies sweating, pallor, dyspnea, shoulder/extremity/back pain. MD Complaint: chest pain Onset/Timin -: days(s) Onset: during rest - Related Data Previous Rx's Medication Instructions Recorded Aspirin 81 mg PO DAILY 90 Days #90 tab 06/06/23 Atorvastatin [Lipitor] 80 mg PO HS 90 Days #90 tab 06/06/23 Metoprolol Succinate (ER) [Toprol 12.5 mg PO DAILY 90 Days #90 tab 06/06/23 XL] Nitroglycerin Sl Tabs [Nitrostat] 0.4 mg SUBLINGUAL Q5M PRN 180 Days 06/06/23 #100 tab Prasugrel [Effient] 10 mg PO DAILY 30 Days #30 tab 06/06/23 Albuterol Inhaler [Ventolin Hfa 1 - 2 puff INHALATION Q6H PRN #1 08/28/24 Inhaler] each Albuterol Inhaler [Ventolin Hfa 1 puff INHALATION QID #8 gm 08/28/24 Inhaler] predniSONE 50 mg PO DAILY #5 tab 08/28/24 Allergies Allergy/AdvReac Type Severity Reaction Status Date / Time No Known Allergies Allergy Verified 08/28/24 17:20 Review of Systems ROS Statement: Those systems with pertinent positive or pertinent negative responses have been documented in the HPI. ROS Other: All systems not noted in ROS Statement are negative. Past Medical History Past Medical History: No Reported History Additional Past Medical History / Comment(s): Bilateral Rotator cuff damage, cevical vertabe damage History of Any Multi-Drug Resistant Organisms: None Reported Past Surgical History: No Surgical Hx Reported Past Anesthesia/Blood Transfusion Reactions: No Reported Reaction Past Psychological History: No Psychological Hx Reported Smoking Status: Former smoker, Vaper Past Alcohol Use History: None Reported Past Drug Use History: Marijuana - Past Family History Father Family Medical History: Cancer Mother Family Medical History: Cancer General Exam General appearance: alert, in no apparent distress Head exam: Present: atraumatic, normocephalic, normal inspection Eye exam: Present: normal appearance, PERRL, EOMI. Absent: scleral icterus, con junctival injection, periorbital swelling ENT exam: Present: normal exam, mucous membranes moist Neck exam: Present: normal inspection. Absent: tenderness, meningismus, lymphadenopathy Respiratory exam: Present: decreased breath sounds. Absent: respiratory distress, wheezes, rales, rhonchi, stridor, accessory muscle use Cardiovascular Exam: Present: regular rate, normal rhythm, normal heart sounds. Absent: systolic murmur, diastolic murmur, rubs, gallop, clicks GI/Abdominal exam: Present: soft, normal bowel sounds. Absent: distended, tenderness, guarding, rebound, rigid Extremities exam: Present: normal inspection, full ROM, normal capillary refill. Absent: tenderness, pedal edema, joint swelling, calf tenderness Back exam: Present: normal inspection Neurological exam: Present: alert, oriented X3, CN II-XII intact Psychiatric exam: Present: normal affect, normal mood Skin exam: Present: warm, dry, intact, normal color. Absent: rash Course Vital Signs 08/28/24 08/28/24 17:20 20:11 Temperature 98.6 F Pulse Rate 60 51 L Respiratory 18 18 Rate Blood Pressure 156/72 107/65 O2 Sat by Pulse 96 94 L Oximetry Chest Pain MDM - MDM Was pt. sent in by a medical professional or institution (Dr. PA, CLERK ENTRY LEVEL, urgent care, hospital, or prison...) When possible be specific @ -No Did you speak to anyone other than the patient for history (EMS, parent, family, police, friend...)? What history was obtained from this source @ -No Did you review nursing and triage notes (agree or disagree)? Why? @ -I reviewed and agree with nursing and triage notes Were old charts reviewed (outside hosp., previous admission, EMS record, old EKG, old radiological studies, urgent care reports/EKG's, prison records)? Report findings @ -No old charts were reviewed Differential Diagnosis (chest pain, altered mental status, abdominal pain women, abdominal pain men, vaginal bleeding, weakness, fever, dyspnea, syncope, headache, dizziness, GI bleed, back pain, seizure, CVA, palpatations, mental health, musculoskeletal)? @ -Differential Dyspnea: Coronary syndrome, arrhythmia, tamponade, asthma, COPD, pulmonary embolism, pneumonia, pneumothorax, pulmonary effusion, anaphylaxis, diabetic ketoacidosis, flailed chest, pulmonary contusion, diaphragmatic rupture, anemia, neuromuscular, this is not meant to be an all-inclusive list. EKG interpreted by me (3pts min.). @ -Sinus bradycardia without ST changes or T wave inversion. Ventricular rate 56 bpm, DEMOND 159 ms, QRS duration 86 ms, QTc 360 ms. X-rays interpreted by me (1pt min.). @ - CXR shows no acute cardiopulmonary process. CT interpreted by me (1pt min.). @ -None done U/S interpreted by me (1pt. min.). @ -None done What testing was considered but not performed or refused? (CT, X-rays, U/S, labs)? Why? @ -None What meds were considered but not given or refused? Why? @ -None Did you discuss the management of the patient with other professionals (professionals i.e. , PA, CLERK ENTRY LEVEL, lab, RT, psych nurse, bilingual social worker, devops developer, teacher, electorate officer, pillowcase cutter)? Give summary @ -No Was smoking cessation discussed for >3mins.? @ -No Was critical care preformed (if so, how long)? @ -No Were there social determinants of health that impacted care today? How? (Homelessness, low income, unemployed, alcoholism, drug addiction, transportation, low edu. Level, literacy, decrease access to med. care, long-term, rehab)? @ -No Was there de-escalation of care discussed even if they declined (Discuss DNR or withdrawal of care, Hospice)? DNR status @ -No What co-morbidities impacted this encounter? (DM, HTN, Smoking, COPD, CAD, Cancer, CVA, ARF, Chemo, Hep., AIDS, mental health diagnosis, sleep apnea, morbid obesity)? @ -Cardiac history Was patient admitted / discharged? Hospital course, mention meds given and route, prescriptions, significant lab abnormalities, going to OR and other pertinent info. @ -Lab work including troponin unremarkable except hyperglycemia (169). CXR shows no acute cardiopulmonary process. Patient given IV Solu-Medrol and prednisone and albuterol inhaler sent to pharmacy. Advised refrain from vaping moving forward. Discussed patient with Dr. Jones Undiagnosed new problem with uncertain prognosis? @ -No Drug Therapy requiring intensive monitoring for toxicity (Heparin, Nitro, Insulin, Cardizem)? @ -No Were any procedures done? @ -No Diagnosis/symptom? @ -Vaping associated bronchitis Acute, or Chronic, or Acute on Chronic? @ -Acute Uncomplicated (without systemic symptoms) or Complicated (systemic symptoms)? @ -Complicated Side effects of treatment? @ -No Exacerbation, Progression, or Severe Exacerbation? @ -No Poses a threat to life or bodily function? How? (Chest pain, [place], [place], pneumonia, PE, COPD, DKA, ARF, appy, cholecystitis, CVA, Diverticulitis, Homicidal, Suicidal, threat to staff... and all critical care pts) @ -No Disposition Clinical Impression: Bronchitis, Vaping-related disorder Disposition: HOME SELF-CARE Condition: Good Instructions (If sedation given, give patient instructions): Acute Bronchitis (ED) Prescriptions: predniSONE 50 mg PO DAILY #5 tab Albuterol Inhaler [Ventolin Hfa Inhaler] 1 - 2 puff INHALATION Q6H PRN #1 each PRN Reason: Shortness Of Breath Albuterol Inhaler [Ventolin Hfa Inhaler] 1 puff INHALATION QID #8 gm Is patient prescribed a controlled substance at d/c from ED?: No Referrals: None,Stated [Primary Care Provider] - 1-2 days Time of Disposition: 19:30
[2024-08-28 17:55] LABS: Basophils % (A) 1 %; Eosinophils # (A) 0.2 k/uL (0-0.7); Eosinophils % (A) 3 %; HCT 45.8 % (39.0-53.0); HGB 15.5 gm/dL (13.0-17.5); Lymphocytes # (A) 1.4 k/uL (1.0-4.8); Lymphocytes % (A) 21 %; MCH 27.7 pg (25.0-35.0); MCHC 33.7 g/dL (31.0-37.0); MCV 82.2 fL (80.0-100.0); Mean Platelet Volume 7.5; Monocytes # (A) 0.3 k/uL (0-1.0); Monocytes % (A) 5 %; Neutrophils # (A) 4.7 k/uL (1.3-7.7); Neutrophils % (A) 69 %; Platelet Count 200 k/uL (150-450); RBC 5.57 m/uL (4.30-5.90); RDW 12.9 % (11.5-15.5); WBC 6.7 k/uL (3.8-10.6)
[2024-08-28 18:04] LABS: INR 0.9 (<1.2); Partial Thromboplastin Time 25.7 sec (22.0-30.0); Prothrombin Time 10.5 sec (10.0-12.5)
[2024-08-28 18:08] LABS: ALT 29 U/L (4-49); AST 29 U/L (17-59); African American GFR (CKD) >90 (>60 ml/min/1.73 sqM); Albumin 4.8 g/dL (3.5-5.0); Alkaline Phosphatase 105 U/L (38-126); Anion Gap 9 mmol/L; Blood Urea Nitrogen 13 mg/dL (9-20); Calcium 9.7 mg/dL (8.4-10.2); Carbon Dioxide 27 mmol/L (22-30); Chloride 104 mmol/L (98-107); Glucose 169 mg/dL (74-99); Magnesium 2.3 mg/dL (1.6-2.3); Non-African American GFR(CKD) 84 (>60 ml/min/1.73 sqM); Potassium 4.2 mmol/L (3.5-5.1); Sodium 140 mmol/L (137-145); Total Bilirubin 0.3 mg/dL (0.2-1.3); Total Protein 7.2 g/dL (6.3-8.2)
--- NOTE | 2024-08-28 18:43 | XR ---
EXAMINATION TYPE: XR chest 2V DATE OF EXAM: 08/28/2024 5:47 PM COMPARISON: 11/22/2023 CLINICAL INDICATION: Male, 44 years old with history of Chest Pain, TECHNIQUE: XR chest 2V view(s) obtained. FINDINGS: The heart size is normal. The pulmonary vasculature is normal. The lungs are clear. IMPRESSION: 1. No acute pulmonary process. [facility], , 08/28/2024 6:40 PM
[2024-08-28] MEDS: methylPREDNISolone SOD SUCCI 125 MG/2 ML VIAL IV STA (19:36)
[2024-08-28 20:12] VITALS: BP 107/65; PULSE 51
== END 2024-08-28 20:16 | disposition home or self-care (01) ==
LOC: EC 17:10
DX: U07.0 Vaping-related disorder (principal); J68.0 Bronchitis and pneumonitis due to chemicals, gases, fumes and vapors; Z86.73 Personal history of transient ischemic attack (TIA), and cerebral infarction without residual deficits; F17.200 Nicotine dependence, unspecified, uncomplicated
CPT/HCPCS: 36415; 93005; 80053; 83735; 84484; 85025; 85610; 85730; 71046; 99285; 96374; J2919